=== PATIENT | female | born 1985 | race Caucasian/White ===

== ENCOUNTER 2019-02-11 05:45 | Emergency (ER) | payer SELFPAY ==
[~2019-02-11] VITALS: Ht 157.5 cm; Wt 88.0 kg
--- OUTSIDE RECORDS SUMMARY | 2019-02-11 05:47 | XMS REPORT ---
Author Author [facility] Address Unknown Phone Unavailable Care Team Providers Care Bonderizer Operator Name Role Phone Unavailable Unavailable Payers Payer Name Policy Type Policy Number Effective Date Expiration Date Problems This patient has no known problems. Allergies, Adverse Reactions, Alerts Allergy Name Allergy Type Status Severity Reaction(s) Onset Date Inactive Date Treating Clinician Comments shweta ZAIDI Active [place] 2015-07-21 00:00:00 Medications This patient has no known medications.
== END 2019-02-11 06:10 | disposition home or self-care (01) ==
LOC: ER 05:45
DX: G43.009 Migraine without aura, not intractable, without status migrainosus (principal)
CPT/HCPCS: 99282

== ENCOUNTER 2019-03-28 02:30 | Emergency (ER) | payer SELFPAY ==
[~2019-03-28] VITALS: Ht 157.5 cm; Wt 88.0 kg
[2019-03-28] MEDS ORDERED: KETOROLAC TROMETHAMINE 60 MG/2 ML VIAL IM ONE (02:45)
[2019-03-28] MEDS ORDERED: HYDROCODONE/APAP 10MG-325MG TAB PO ONE (02:45)
[2019-03-28] MEDS ORDERED: ORPHENADRINE CITRATE 30 MG/ML VIAL IM ONE (02:45)
== END 2019-03-28 04:20 | disposition home or self-care (01) ==
LOC: ER 02:30
DX: S16.1XXA Strain of muscle, fascia and tendon at neck level, initial encounter (principal); M54.12 Radiculopathy, cervical region
CPT/HCPCS: 99283; J1885; J2360

== ENCOUNTER 2019-05-29 13:35 | Emergency (ER) | payer MEDICARE, OTHER | END 2019-05-29 13:58 | disposition left against medical advice (07) | LOC: ER 13:35 | DX: R69 Illness, unspecified (principal) ==

== ENCOUNTER 2021-10-05 01:00 | Emergency (ER) | payer OTHER ==
[~2021-10-05] VITALS: Ht 160 cm; Wt 83.9 kg
[2021-10-05] MEDS ORDERED: SODIUM CHLORIDE 0.9% 1000ML 1,000 ML ONE (01:22)
[2021-10-05 01:28] LABS: BASOPHILS % 0.3 % (0.0-1.0); EOSINOPHILS # (AUTO) 0.1 (0.0-0.4); EOSINOPHILS % 0.7 % (0.0-6.0); HEMOGLOBIN 14.9 g/dL (12.0-16.0); LYMPHOCYTES # (AUTO) 5.2 (1.0-3.2); LYMPHOCYTES % 35.7 % (18.0-39.1); MEAN CORPUSCULAR HGB CONC 33.9 g/dL (31-35); MEAN CORPUSCULAR VOLUME 94.6 fL (81-99); MONOCYTES # (AUTO) 1.3 (0.2-0.8); MONOCYTES % 8.5 % (4.4-11.3); NEUTROPHILS % 54.6 % (38.7-80.0); PLATELET COUNT 333 x10e3/uL (140-360); RED BLOOD COUNT 4.65 x10e6/uL (3.6-5.1); RED CELL DISTRIBUTION WIDTH 12.4 % (11.7-14.4)
[2021-10-05 01:39] LABS: ALBUMIN 4.4 g/dL (3.5-5.0); ALBUMIN/GLOBULIN RATIO 1.3 (0.8-2.0); ANION GAP 14.4 mmol/L (8-16); CALCIUM 9.2 mg/dL (8.4-10.2); CREATININE, SERUM 0.87 mg/dL (0.57-1.11); POTASSIUM 3.4 mmol/L (3.5-5.1)
[2021-10-05] MEDS ORDERED: SODIUM CHLORIDE 0.9% 1000ML 1,000 ML IV ONE ×2 (01:45→02:30)
[2021-10-05 02:10] LABS: EOSINOPHILS % (MANUAL) 3 % (0-7); LYMPHOCYTES % (MANUAL) 21 % (19-48); MONOCYTES % (MANUAL) 5 % (3.4-9.0); NEUTROPHILS % (MANUAL) 65 % (40-74); PLATELET ESTIMATE ADEQUATE; PLATELET MORPHOLOGY COMMENT NORMAL; RBC MORPHOLOGY COMMENT NORMAL; SMUDGE CELLS FEW
[2021-10-05 02:33] VITALS: BP 101/81
== END 2021-10-05 02:55 | disposition home or self-care (01) ==
LOC: ER 01:03
DX: R00.0 Tachycardia, unspecified (principal); Z98.890 Other specified postprocedural states; Z87.09 Personal history of other diseases of the respiratory system
CPT/HCPCS: 36415; 71045; 80053; 84484; 84702; 85025; 93005; 99284; J7030

== ENCOUNTER 2021-10-09 05:21 | Emergency (ER) | payer OTHER ==
[~2021-10-09] VITALS: Ht 160 cm; Wt 83.9 kg
[2021-10-09] MEDS ORDERED: PREDNISONE20 MG PO (05:28)
[2021-10-09] MEDS ORDERED: ULTRAM 50MG50 MG PO (05:29)
[2021-10-09] MEDS ORDERED: PREDNISONE 20 MG TAB PO ONE (05:30)
[2021-10-09] MEDS ORDERED: PREDNISONE 20 MG TAB ONE (05:38)
== END 2021-10-09 05:41 | disposition home or self-care (01) ==
LOC: ER 05:23
DX: T63.441A Toxic effect of venom of bees, accidental (unintentional), initial encounter (principal); L25.8 Unspecified contact dermatitis due to other agents
CPT/HCPCS: 99283; J7512

== ENCOUNTER 2021-11-27 15:02 | Emergency (ER) | payer OTHER ==
[~2021-11-27] VITALS: Ht 160 cm; Wt 83.9 kg
[~2021-11-27 15:02] MED LIST: PREDNISONE20 MG PO; ULTRAM 50MG50 MG PO
[2021-11-27 15:39] LABS: BASOPHILS % 0.1 % (0.0-1.0); HEMATOCRIT 38.8 % (34.2-44.1); HEMOGLOBIN 12.8 g/dL (12.0-16.0); LYMPHOCYTES # (AUTO) 1.4 (1.0-3.2); LYMPHOCYTES % 11.2 % (18.0-39.1); MONOCYTES # (AUTO) 0.7 (0.2-0.8); MONOCYTES % 5.3 % (4.4-11.3); NEUTROPHILS # (AUTO) 10.5 (2.1-6.9); NEUTROPHILS % 83.1 % (38.7-80.0); PLATELET COUNT 265 x10e3/uL (140-360); RED CELL DISTRIBUTION WIDTH 12.5 % (11.7-14.4)
[2021-11-27 16:04] LABS: ALBUMIN 3.9 g/dL (3.5-5.0); ALBUMIN/GLOBULIN RATIO 1.1 (0.8-2.0); ANION GAP 12.7 mmol/L (8-16); CALCIUM 8.9 mg/dL (8.4-10.2); CREATININE, SERUM 0.76 mg/dL (0.57-1.11); POTASSIUM 3.7 mmol/L (3.5-5.1)
[2021-11-27] MEDS ORDERED: FUROSEMIDE20 MG PO (16:37)
[2021-11-27] MEDS ORDERED: IBUPROFEN 600 MG TAB PO STA (16:40)
[2021-11-27 16:57] VITALS: BP 118/83
== END 2021-11-27 16:50 | disposition home or self-care (01) ==
LOC: ER 15:12
DX: R60.9 Edema, unspecified (principal); J02.9 Acute pharyngitis, unspecified
CPT/HCPCS: 36415; 80053; 83518; 85025; 87070; 99284; U0002